=== PATIENT | female | born 1955 | race African-American/Black ===

== ENCOUNTER → 2019-12-31 | Outpatient (CLI) | payer BC ==
[~2019-12-31] MED LIST: BUPIVACAINE MPF 0.5% 10 ML VIAL for KCIC. IM ONE; LIDOCAINE 1% Multi-Dose 20 ML VIAL. ID ONE; methylPREDNISolone ACETATE 40 MG/ML VIAL. INT ART ONE
--- NOTE | 2019-12-31 15:00 | KCIC ---
INDICATION: Reason: CHRONIC LT HIP PAIN, RECENT WORSENING PAIN / Spl. Instructions: / History: COMPARISON: None. IMPRESSION: Left hip: 2 views obtained. Severe degenerative changes of the left hip with subchondral sclerosis and osteophyte formation as well as subchondral lucencies which can be seen with cyst formation or erosions. Osteochondral injury can have this appearance as well. There is some dysmorphic changes with flattening of the femoral head. Electronically signed by: Eliu Bailey MD (12/31/2019 2:56 PM) [id number]
--- NOTE | 2019-12-31 17:35 | KCIC ---
Examination: Left hip INJECTION, WITH FLUOROSCOPIC GUIDANCE History: Left hip pain Procedure: Informed verbal and written consent was obtained after the explanation of risks, benefits, and possible complications. Prior to the procedure, final verification was performed. The patient was placed supine on the exam table, and localizing fluoroscopy was performed. The patient's left hip was prepared and draped in sterile fashion. Local anesthesia was administered with 1% lidocaine. Under fluoroscopic guidance, a 22-gauge spinal needle was advanced into the femoroacetabular joint. Intra-articular placement was confirmed with air. A mixture off 4 mL of bupivacaine, 4 mm lidocaine and 80 mg of Depo-Medrol was injected. The needle was then withdrawn and hemostasis achieved. The patient tolerated the procedure well and there were no immediate complications. The patient was discharged with appropriate instructions. Impressions: Successful fluoroscopically-guided left hip injection. Total fluoroscopic time 25 seconds. Total fluoroscopic images 1. Electronically signed by: David Cook MD (12/31/2019 5:32 PM) [id number]
== END | disposition home or self-care (01) ==
LOC: KCIC 10:56
PROVIDERS: ATTEND Physical Medicine & Rehabilitation
DX: M25.752 Osteophyte, left hip (principal); Z88.8 Allergy status to other drugs, medicaments and biological substances
CPT/HCPCS: 20610; 73501; 77002; J1030; J3490

== ENCOUNTER → 2020-05-13 | Outpatient (CLI) | payer OTHER ==
--- NOTE | 2020-05-13 17:21 | RAD ---
EXAM: Lumbar spine, 2 views. HISTORY: Pain. COMPARISON: None. FINDINGS: 2 views of the lumbar spine are obtained. There is minimal retrolisthesis of L5 on S1. There is minimal multilevel endplate remodeling. There is facet arthropathy at the lumbosacral junction. There is disc space narrowing at L4-L5. IMPRESSION: 1. Multilevel degenerative change, described above. 2. No acute osseous finding. Electronically signed by: Nitza Garland MD (05/13/2020 5:19 PM) [facility]
== END ==
LOC: RAD 10:43
PROVIDERS: ATTEND Family Medicine
DX: M47.816 Spondylosis without myelopathy or radiculopathy, lumbar region (principal); M43.17 Spondylolisthesis, lumbosacral region; M48.061 Spinal stenosis, lumbar region without neurogenic claudication; M16.12 Unilateral primary osteoarthritis, left hip
CPT/HCPCS: 72100

== ENCOUNTER → 2020-10-24 | Outpatient (CLI) | payer MEDICARE, BC ==
[2020-10-24 10:33] LABS: ALBUMIN 4.1 g/dL (3.4-5.0); CALCIUM 9.3 mg/dL (8.5-10.1); CREATININE 0.6 mg/dL (0.6-1.0); GFR 121.4
[2020-10-24 10:42] LABS: BASO % 1 % (0-3); EOS # 0.1 x10^3/uL (0.0-0.7); EOS % 2 % (0-3); HEMATOCRIT 36.2 % (36.0-47.0); HEMOGLOBIN 12.2 g/dL (12.0-15.5); LYMPH # 1.5 x10^3/uL (1.0-4.8); LYMPH % 29 % (24-48); MEAN CORPUSCULAR HEMOGLOBIN 31 pg (25-35); MEAN CORPUSCULAR HGB CONC 34 g/dL (31-37); MEAN CORPUSCULAR VOLUME 93 fL (79-100); MONO # 0.3 x10^3/uL (0.0-1.1); MONO % 6 % (0-9); NEUT # 3.2 x10^3/uL (1.8-7.7); NEUT % 63 % (31-73); PLATELET COUNT 208 x10^3/uL (140-400); RED BLOOD COUNT 3.89 x10^6/uL (3.50-5.40); RED CELL DISTRIBUTION WIDTH 12.8 % (11.5-14.5); WHITE BLOOD COUNT 5.1 x10^3/uL (4.0-11.0)
[2020-10-24 10:51] LABS: PROTHROMBIN TIME PATIENT 12.5 SEC (11.7-14.0)
--- NOTE | 2020-10-24 12:46 | EKG ---
[facility] [address] [place] [address] Test Date: 2020-10-24 Test Time: 12:23:04 Pat Name: ARIANNA RIVERA Department: Room: Gender: F [employer]: : [id number] Requested By: PAOLO DARBY Order Number: [id number] Reading MD: Rafal Cottrell MD Measurements Intervals [place] Rate: 64 P: 50 [place]: 172 QRS: 42 QRSD: 78 T: 31 QT: 372 QTc: 388 Interpretive Statements SINUS RHYTHM Electronically Signed On 10-24-2020 15:49:02 CDT by Rafal Cottrell MD
--- NOTE | 2020-10-24 13:11 | RAD ---
EXAM: Chest, 2 views. HISTORY: Preoperative evaluation. COMPARISON: None. FINDINGS: 2 views of the chest are obtained. There is no infiltrate, pleural fusion or pneumothorax. The heart is normal in size. IMPRESSION: No acute pulmonary finding. Electronically signed by: Nitza Garland MD (10/24/2020 1:08 PM) [id number]
[2020-10-25 01:10] LABS: HEMOGLOBIN A1C 5.1 % (4.8-5.6)
== END ==
LOC: SURGPAT 12:27
PROVIDERS: ATTEND Orthopaedic Surgery
DX: Z01.810 Encounter for preprocedural cardiovascular examination (principal); M16.12 Unilateral primary osteoarthritis, left hip; Z96.642 Presence of left artificial hip joint
CPT/HCPCS: 36415; 71046; 80048; 82040; 82306; 83036; 85025; 85610; 85651; 85730; 87641; 93005